=== PATIENT | male | born 1965 | race Two or more races ===

== ENCOUNTER 2020-05-27 08:46 | Inpatient (IN) | payer SELFPAY ==
[~2020-05-27] VITALS: Ht 170.2 cm; Wt 112.4 kg
[2020-05-27 09:23] LABS: Urine Bacteria NONE SEEN /hpf (None Seen); Urine Blood 3+ /uL (Negative); Urine Mucus FEW (None Seen); Urine Specific Gravity 1.031 (1.001-1.035); Urine WBC 189 /hpf (0 - 3)
[2020-05-27 10:44] LABS: Basophils # (auto) 0 10 ^3/uL (0-0.2); Basophils % (auto) 0.5 % (0.0-2.0); Eosinophils # (auto) 0.1 10 ^3/uL (0-0.8); Eosinophils % (auto) 1.7 % (0.0-7.0); Hematocrit 46.5 % (41.0-53.0); Hemoglobin 16.2 g/dL (13.5-17.5); Lymphocytes # (auto) 1.6 10 ^3/uL (0.4-5.4); Lymphocytes % (auto) 19.7 % (10.0-50.0); Mean Corpuscular Hemoglobin 30.6 pg (28.0-32.0); Mean Corpuscular Hgb Conc. 34.9 g/dL (32.0-36.0); Mean Corpuscular Volume 87.7 fL (80.0-100.0); Monocytes # (auto) 0.7 10 ^3/uL (0-1.3); Monocytes % (auto) 9.3 % (0.0-12.0); Neutrophils # (auto) 5.4 10 ^3/uL (1.6-8.6); Neutrophils % (auto) 68.8 % (37.0-80.0); Nucleated Red Blood Cells % 0.2 %; Platelet Count (auto) 187 10^3/uL (140-450); Red Cell Distribution Width 13.6 % (11.8-14.3); White Blood Cell 7.9 10^3/uL (4.4-10.8)
[2020-05-27 10:52] LABS: Albumin 4.2 g/dL (3.4-5.0); Calcium 8.7 mg/dL (8.5-10.1); Potassium 4.1 mmol/L (3.5-5.1)
[2020-05-27 10:55] LABS: BUN/Creatinine Ratio 19.4; Bilirubin, Total 1.5 mg/dL (0.2-1.0); Total Protein 7.7 g/dL (6.4-8.2)
[2020-05-27] MEDS ORDERED: SODIUM CHLORIDE 0.9% 1,000 ML IVB ONE (12:22)
[2020-05-27] MEDS ORDERED: KETOROLAC TROMETH 30 MG/ML 1ML VIAL IV ONE (13:00)
[2020-05-27 13:24] LABS: INR 0.97 (0.9-1.15); Partial Thromboplastin Time 25.6 sec (23.0-31.2)
[2020-05-27] MEDS ORDERED: cefTRIAXone 1GM/50ML D5W 50 ML IV ONE (17:00)
[2020-05-27] MEDS: SOD CHL 0.45% 1,000 ML IV SCH (17:28)
[2020-05-27] MEDS ORDERED: LORazepam 0.5 MG TAB PO PRN (17:30)
[2020-05-27] MEDS ORDERED: ACETAMINOPHEN 325 MG TAB PO PRN (17:30)
[2020-05-27] MEDS ORDERED: ONDANSETRON HCL 4 MG/2 ML VIAL IV PRN (17:30)
[2020-05-27] MEDS ORDERED: NITROGLYCERIN 0.4 MG SL TAB SL PRN (17:30)
[2020-05-27] MEDS ORDERED: MORPHINE SULF INJ 2 MG/ML SYRINGE 1ML IV PRN (17:30)
[2020-05-27] MEDS ORDERED: ALUM & MAG HYDROX-SIMETH LIQ(MAALOX) 30 ML PO PRN (17:30)
[2020-05-27] MEDS ORDERED: LISINOPRIL 20 MG TAB PO ONE (18:00)
[2020-05-27] MEDS ORDERED: cloNIDine HCL 0.1 MG TAB PO PRN (18:00)
[2020-05-27 18:46] LABS: Cholesterol 200 mg/dL (< 200); HDL Cholesterol 36 mg/dL (40-59); LDL Cholesterol 150 mg/dL (< 100); Triglycerides 82 mg/dL (< 150)
[2020-05-27 20:30] VITALS: BP 141/74
--- NOTE | 2020-05-27 20:30 | NUR ---
Patient Brought to Tele from ER w/ all Belongings Patient is AO x 4 w/ HOB at 30 degrees. Bed locked in lowest position and call light is within reach. Patient is ambulatory and has no s/s of distress or SOB. Patient complains of some mild pain on right side after using restroom, but has not requested pain medication. Will continue to monitor.
[2020-05-27] MEDS: FAMOTIDINE (10MG/ML) 2ML VL IV SCH (22:11)
[2020-05-27] MEDS: metroNIDAZOLE 500MG/100ML 100 ML IV SCH (22:11)
[2020-05-27 23:13] VITALS: BP 141/74
[2020-05-28] MEDS: MORPHINE SULF INJ 2 MG/ML SYRINGE 1ML IV PRN ×2 (01:54→19:07)
[2020-05-28 05:28] VITALS: BP 119/74
[2020-05-28] MEDS: metroNIDAZOLE 500MG/100ML 100 ML IV SCH ×3 (05:33→22:14)
--- NOTE | 2020-05-28 07:30 | NUR ---
Opening Shift Note Assumed patient care from NOC RN, Vania. Patient currently sitting up in bed, respirations even and unlabored. No signs of distress at this time. Safety precautions in place, will continue to monitor.
[2020-05-28] MEDS: cefTRIAXone 1GM/50ML D5W 50 ML IV SCH (08:29)
[2020-05-28] MEDS: HYDROcodone-ACET 5/325MG TAB PO PRN (08:29)
[2020-05-28 09:00] VITALS: BP 113/72
[2020-05-28] MEDS ORDERED: ALLOPURINOL 100 MG TAB PO SCH (10:00)
[2020-05-28] MEDS ORDERED: ENOXAPARIN SOD 40 MG/0.4 ML SYRINGE SC SCH (10:00)
--- NOTE | 2020-05-28 10:18 | NUR ---
at Bedside Dr. Silver at bedside. Patient verbalized understanding and is agreeable at this time. New orders received.
[2020-05-28] MEDS: FAMOTIDINE (10MG/ML) 2ML VL IV SCH ×2 (10:19→22:14)
[2020-05-28] MEDS: SOD CHL 0.45% 1,000 ML IV SCH (10:19)
[2020-05-28] MEDS: LISINOPRIL 20 MG TAB PO SCH (10:20)
[2020-05-28 10:57] LABS: Alcohol, Urine < 3.0 mg/dL (0-10); Amphetamine Screen, Urine NEGATIVE (NEGATIVE); Barbiturate Scree,Urine NEGATIVE (NEGATIVE); Benzodiazephine Screen, Urine NEGATIVE (NEGATIVE); Cannabinoid Screen, Urine NEGATIVE (NEGATIVE); Cocaine Screen, Urine NEGATIVE (NEGATIVE); Opiate Scree,Urine NEGATIVE (NEGATIVE); Phencyclidine Screen, Urine NEGATIVE (NEGATIVE)
[2020-05-28 10:58] LABS: Urine Amorphous Crystal MOD /hpf (None Seen); Urine Bacteria NONE SEEN /hpf (None Seen); Urine Mucus FEW (None Seen); Urine WBC 616 /hpf (0 - 3); Urine WBC Clumps PRESENT /hpf (None Seen)
--- NOTE | 2020-05-28 11:00 | NUR ---
at Bedside Dr. Romero at bedside discussing plan of care with patient. Patient verbalized understanding and is agreeable at this time. Will continue to monitor.
[2020-05-28 11:06] LABS: Urine Specific Gravity 1.022 (1.001-1.035)
[2020-05-28 11:09] LABS: Urine Budding Yeast Few /hpf (None Seen)
--- NOTE | 2020-05-28 11:40 | NUR ---
COVID Swab Obtained covid swab and walked down to lab. cytogenetic technician aware. Addendum: 05/28/20 at 1148 by KRISTEL MASCORRO RN RN Patient tolerated well, no signs of distress. Respirations even and unlabored. Safety precautions in place, will continue to monitor.
[2020-05-28 13:00] VITALS: BP 113/75
[2020-05-28] MEDS ORDERED: DEXTROSE (50%) 50ML SYRG IV PRN (15:15)
--- NOTE | 2020-05-28 16:27 | NUR ---
COVID RESULTS: PATIENT COVID POSITIVE, MD HOPKINS MADE AWARE, PATIENT TO BE TRANSFERRED TO COVID UNIT ROOM 247.
--- NOTE | 2020-05-28 16:41 | NUR ---
Patient Transferred Patient transferred to covid unit with Memo Kaiser.
--- NOTE | 2020-05-28 16:45 | NUR ---
PT ARRIVED FROM [facility] VIA WHEELCHAIR, MADE AWARE BEFORE ARRIVAL THAT HE IS POSITIVE FOR COVID, PT ARRIVE VERY UPSET AND STILL IN SHOCK HAVE IN A LOT OF QUESTIONS WHAT WILL HAPPEN NEXT, PT STATED I AM NOT WORRY ABOUT MY SELF, I AM WORRIED MORE ABOUT MY > ALL PATIENT'S QUESTION ANSWERED, SUPPORT GIVEN TO HIM, AND MADE HIM AWARE CLEARLY THAT HE IS VERY STABLE AND NOT TO WORRY, HAND OUT EDUCATION REGARDING COVID GIVEN TO PT , TELE 35 SR 65, ROOM ORIENTATION GIVEN TO PT, CALL LIGHT WITHIN REACH
--- NOTE | 2020-05-28 16:46 | NUR ---
Report Report given to ANKIT Oliveros.
[2020-05-28 16:53] VITALS: BP 121/73
[2020-05-28 17:00] VITALS: BP 149/83
--- NOTE | 2020-05-28 17:00 | NUR ---
Called Received return call from Dr. Romero. New orders received. Per Dr. Romero, messaged Dr. Silver regarding micro results; per , advance diet at this time.
--- NOTE | 2020-05-28 17:12 | NUR ---
MD Called Received call from Dr. Silver. Per , hold procedure at this time, patient to be kept NPO.
--- NOTE | 2020-05-28 17:32 | NUR ---
PAGE DR LENTZ
[2020-05-28] MEDS: InsuLIN REG 1unit/0.01ml Soln (100units/ml) SC SCH (17:33)
[2020-05-28] MEDS: ACCU-CHEK COMFORT CURVE STRIP VI SCH (17:34)
--- NOTE | 2020-05-28 18:00 | NUR ---
KIDNEY US TECH AT BED SIDE
--- NOTE | 2020-05-28 18:45 | NUR ---
SHOWER PT IS TAKING A SHOWER TO GET READY FOR THE SURGERY
[2020-05-28] MEDS: SOD CHL 0.45% WITH 20MEQ KCL 1,000 ML IV SCH (18:54)
--- NOTE | 2020-05-28 19:07 | NUR ---
PT IS RESTING IN BED COMFORTABLY STABLE, NO DISTRESS NOTED,MEDICATED WITH MORPHINE FOR ACHING PAIN AT 7/10, PLAYING A GAME OVER HIS CELL PHONE, CONTINUE MONITORING
--- NOTE | 2020-05-28 19:20 | NUR ---
OPENING SHIFT NOTE Assumed care of patient, who is A&O x4. Currently on RA with no s/s of distress. Denies pain at this time. PIV in right forearm is intact and patent. IVF currently infusing. POC discussed and patient verbalized understanding. Patient to be kept NPO per Dr. Silver, pending surgery. Bed is in low locked position with side rails up x2. Call light is within reach and patient encouraged to call for assistance when needed. Will continue to monitor for changes PRN.
[2020-05-28 22:00] VITALS: BP 152/80
[2020-05-28] MEDS: ALBUTEROL SULF HFA 90MCG INH 200DOSE IN SCH (22:00)
[2020-05-29] MEDS: SOD CHL 0.45% WITH 20MEQ KCL 1,000 ML IV SCH (04:35)
[2020-05-29 05:00] VITALS: BP 154/82
[2020-05-29] MEDS: MORPHINE SULF INJ 2 MG/ML SYRINGE 1ML IV PRN ×4 (05:30→23:57)
[2020-05-29 05:48] LABS: Basophils # (auto) 0 10 ^3/uL (0-0.2); Basophils % (auto) 0.4 % (0.0-2.0); Eosinophils # (auto) 0.1 10 ^3/uL (0-0.8); Eosinophils % (auto) 1.6 % (0.0-7.0); Hematocrit 45.9 % (41.0-53.0); Hemoglobin 15.3 g/dL (13.5-17.5); Lymphocytes # (auto) 1.7 10 ^3/uL (0.4-5.4); Lymphocytes % (auto) 26.6 % (10.0-50.0); Mean Corpuscular Hemoglobin 29.5 pg (28.0-32.0); Mean Corpuscular Hgb Conc. 33.4 g/dL (32.0-36.0); Mean Corpuscular Volume 88.2 fL (80.0-100.0); Monocytes # (auto) 0.6 10 ^3/uL (0-1.3); Monocytes % (auto) 9.6 % (0.0-12.0); Neutrophils % (auto) 61.8 % (37.0-80.0); Nucleated Red Blood Cells % 0.1 %; Platelet Count (auto) 181 10^3/uL (140-450); Red Cell Distribution Width 13.5 % (11.8-14.3); White Blood Cell 6.5 10^3/uL (4.4-10.8)
[2020-05-29 06:09] LABS: Potassium 3.9 mmol/L (3.5-5.1)
[2020-05-29 06:21] LABS: Albumin 3.4 g/dL (3.4-5.0); BUN/Creatinine Ratio 16.5; Bilirubin, Total 1.6 mg/dL (0.2-1.0); Calcium 8.8 mg/dL (8.5-10.1)
[2020-05-29] MEDS: InsuLIN REG 1unit/0.01ml Soln (100units/ml) SC SCH ×2 (06:31)
[2020-05-29] MEDS: metroNIDAZOLE 500MG/100ML 100 ML IV SCH ×3 (06:31→21:36)
[2020-05-29] MEDS: ACCU-CHEK COMFORT CURVE STRIP VI SCH ×2 (06:31)
[2020-05-29] MEDS: ALBUTEROL SULF HFA 90MCG INH 200DOSE IN SCH ×3 (06:41→21:21)
--- NOTE | 2020-05-29 06:41 | NUR ---
Respiratory note: [facility] THERAPY HELD, PT'S INHALERS NOT AVAILABLE AT THIS TIME. HR 66, RR 18, SPO2 96% ON ROOM AIR. BREATH SOUNDS CLEAR/DIM T/O. PT AWAKE AND ALERT, RESTING IN BED AND DENIES SOB, NO S/S OF DISTRESS. WILL FOLLOW UP WITH PHARMACY ON INHALERS. WILL CONT TO MONITOR.
[2020-05-29 08:00] VITALS: BP 151/90
--- NOTE | 2020-05-29 08:30 | NUR ---
Opening Shift Note Assumed care of patient, patient comfortably sleeping, breath sounds even and unlabored, patient on room air. No S/S of distress/SOB or pain. Instructed on POC and to call for assist PRN. Bed at lowest locked position and call light within reach. Will continue to monitor for changes Q1hr and PRN.
--- NOTE | 2020-05-29 09:51 | NUR ---
Notified patient that he will not have his surgery today, per Dr. Romero. Patient is very upset and is demanding to speak to Dr. Silver, patient states " im leaving today, no later than 1pm, there is no point in me staying here". Paged Dr. Romero. Awaiting call back. Addendum: 05/29/20 at 0953 by Pretty Lynn RN Received call from Dr. Romero. will be in to see patient later.
--- NOTE | 2020-05-29 10:16 | NUR ---
Updated Patients (Adán Ruiz) on POC, after password was provided. Addendum: 05/29/20 at 1034 by Pretty Lynn RN talking to patient on the phone.
[2020-05-29 10:22] VITALS: BP 151/90
[2020-05-29] MEDS ORDERED: SODIUM CHLORIDE 0.9% 1,000 ML IV ONE (11:00)
[2020-05-29] MEDS: ZINC SULFATE 220mg CAP or TAB PO SCH (11:28)
[2020-05-29] MEDS: cefTRIAXone 1GM/50ML D5W 50 ML IV SCH (11:28)
[2020-05-29] MEDS: LISINOPRIL 20 MG TAB PO SCH (11:29)
[2020-05-29] MEDS: CHOLECALCIFEROL (VITD3) 2,000 UNIT CAP PO SCH (11:29)
[2020-05-29 12:00] VITALS: BP 163/88
--- NOTE | 2020-05-29 13:51 | NUR ---
Dr. Romero at bedside.
[2020-05-29 17:00] VITALS: BP 138/83
--- NOTE | 2020-05-29 17:02 | NUR ---
Urine specimen collected and sent to lab via [employer] [facility] [employer] [place] [employer] [facility].
[2020-05-29 18:19] LABS: Urine Bacteria MOD /hpf (None Seen); Urine Blood 3+ /uL (Negative); Urine Mucus FEW (None Seen); Urine WBC 43 /hpf (0 - 3); Urine WBC Clumps PRESENT /hpf (None Seen)
--- NOTE | 2020-05-29 19:05 | NUR ---
patient c/o low abdominal pain that radiates to the left /right flank , 07/08. Medicated per MD orders.
--- NOTE | 2020-05-29 19:06 | NUR ---
closing note Patient is sitting up in bed, on room air, breath sounds even and unlabored. Bed at lowest locked position and call light within reach. Will endorse care to NOC RN.
--- NOTE | 2020-05-29 20:00 | NUR ---
Opening Shift Note Assumed care of patient, awake and alert. No S/S of distress/SOB. Pain to abd and lower back 10/10 stabbing pain will medicate patient per md order. Instructed on POC and to call for assist PRN, will continue to monitor for changes Q1hr and PRN. Bed in low position and call light within reach.
[2020-05-29] MEDS: DOCUSATE SOD 100 MG CAP PO PRN (20:14)
[2020-05-29] MEDS: HYDROcodone-ACET 5/325MG TAB PO PRN (20:14)
--- NOTE | 2020-05-29 20:14 | NUR ---
pain 10/10 stabbing pain to right abd and back. patient requested norco. patient medicated for pain
[2020-05-29] MEDS: PANTOPRAZOLE 40 MG TAB PO SCH (21:37)
--- NOTE | 2020-05-29 21:38 | NUR ---
pain 3/10 pain
[2020-05-29 21:59] VITALS: BP 153/99
--- NOTE | 2020-05-29 23:57 | NUR ---
pain pain of 10/10 to right abd and back stabbing pain. patient medicated for pain
--- NOTE | 2020-05-30 00:27 | NUR ---
patient sleeping no signs of sob distress or pain
[2020-05-30] MEDS: HYDROcodone-ACET 5/325MG TAB PO PRN ×2 (03:15→12:03)
--- NOTE | 2020-05-30 03:15 | NUR ---
pain 10/10 to right abd stabbing pain. patient requested norco.patient medicated for pain
[2020-05-30 05:00] VITALS: BP 123/95
[2020-05-30] MEDS: metroNIDAZOLE 500MG/100ML 100 ML IV SCH ×3 (05:32→22:43)
[2020-05-30] MEDS: MORPHINE SULF INJ 2 MG/ML SYRINGE 1ML IV PRN ×4 (05:55→22:43)
--- NOTE | 2020-05-30 06:37 | NUR ---
patient rounds patient awake and alert denies sob distress or pain. iv is intact and patent. call light within reach and bed in low position
[2020-05-30] MEDS: ALBUTEROL SULF HFA 90MCG INH 200DOSE IN SCH ×3 (06:41→21:37)
--- NOTE | 2020-05-30 07:10 | NUR ---
report given to dayshift rn patient denies sob distress or pain
[2020-05-30 08:00] VITALS: BP 118/55
--- NOTE | 2020-05-30 08:00 | NUR ---
Opening Shift Note Assumed care of patient, pt comfortably sleeping, breath sounds even and unlabored. No S/S of distress/SOB or pain. Bed at lowest locked position and call light within reach. Will continue to monitor for changes Q1hr and PRN.
--- NOTE | 2020-05-30 09:50 | NUR ---
Patient c/o lower abdominal pain, will medicate per MD orders.
[2020-05-30] MEDS: cefTRIAXone 1GM/50ML D5W 50 ML IV SCH (09:51)
[2020-05-30] MEDS: ZINC SULFATE 220mg CAP or TAB PO SCH (09:51)
[2020-05-30] MEDS: LISINOPRIL 20 MG TAB PO SCH (09:52)
[2020-05-30] MEDS: CHOLECALCIFEROL (VITD3) 2,000 UNIT CAP PO SCH (09:52)
[2020-05-30] MEDS: PANTOPRAZOLE 40 MG TAB PO SCH ×2 (09:52→22:43)
--- NOTE | 2020-05-30 11:15 | NUR ---
IV on right FA is leaking. IV discontinued IV DC'd with clean sterile technique, catheter fully intact. Pressure dressing applied to site. Patient tolerated well.
--- NOTE | 2020-05-30 11:51 | NUR ---
Nutrition Assessment Notes please see attached link for complete assessment Est energy needs ABW 89 [id number] kcal (20-23kcal/kg ABW) , Est protein needs 89-97g (1-1.1g/kg ABW) . Will reassess prn. Addendum: 05/30/20 at [address] Amended: Links added.
[2020-05-30 12:00] VITALS: BP 140/98
--- NOTE | 2020-05-30 13:00 | NUR ---
IV insertion IV access obtained, via clean sterile technique by inserting 20 gauge catheter at left hand after 1 attempt. IV secured properly. No trauma to site. Patient tolerated well.
--- NOTE | 2020-05-30 13:40 | NUR ---
Updated patient's on POC, after password was provided. is requesting to talk to MD. Pagetodd Weiss.
[2020-05-30] MEDS: DOCUSATE SOD 100 MG CAP PO PRN (15:50)
--- NOTE | 2020-05-30 16:00 | NUR ---
spoke to patient's NOK, sohail Ruiz ()after password was provided.
--- NOTE | 2020-05-30 16:07 | NUR ---
Assessment Patient is a 54-year-old male who is alert and oriented. Prior to admission patient lived home with family and functioned independently. Prior to admission patient could care for his own ADLs. Patient does not have any medical equipment now. Patient stated he has applied for [employer]. Patient was informed upon discharge bedside nurse will provide him with instructions to follow with [facility] discharge clinic. Per patient he will return to his prior living arraignments post discharge and family will transport him home. Informed patient he has a right to participate in all discharge planning. Patient verbalized understanding. Addendum: 05/30/20 at 1610 by NATE MORTENSEN Amended: Links added.
[2020-05-30 17:00] VITALS: BP 117/81
--- NOTE | 2020-05-30 18:57 | NUR ---
Closing Note Patient is comfortably resting in bed, no s/s of distress/noted/stated. No c/o pain. Bed at lowest locked position and call light within reach. Will endorse care to NOC RN.
[2020-05-30 20:00] VITALS: BP 148/99
[2020-05-30 21:47] VITALS: BP 148/99
--- NOTE | 2020-05-30 22:20 | NUR ---
PAIN Patient reports 8/10 pain to right groin area that radiates to right lower back. Requests Morphine. Patient medicated according to orders. Will monitor for effectiveness.
--- NOTE | 2020-05-31 00:10 | NUR ---
PAIN Patient reports headache. Medicated with Acetaminophen 650mg per orders. Will monitor for effectiveness.
--- NOTE | 2020-05-31 02:33 | NUR ---
OPENING SHIFT NOTE Assumed care of patient who is A&O x4. Currently on RA with no s/s of distress. Reports pain to right groin that radiates to right lower back. Also reports dysuria. PIV in left hand intact and patent. Flushed with 10ml NS. Patient is ambulatory without the use of assistive devices at baseline. POC discussed and patient verbalizes understanding. Bed is in low locked position with side rails up x2. Call light within reach and patient encouraged to call for assistance when needed. Will continue to monitor for changes PRN. Addendum: 05/31/20 at 0616 by CESAR MONTALVO RN RN INCORRECT DATE AND TIME. CORRECT DATE AND TIME IS 05/30/20 @ 1945.
[2020-05-31 05:08] VITALS: BP 93/51
[2020-05-31 06:14] VITALS: BP 98/55
--- NOTE | 2020-05-31 06:16 | NUR ---
BLOOD PRESSURE [employer] obtained and reported a BP of 93/52, HR 56. Reassessed by this RN and is 98/55, HR 60.
[2020-05-31] MEDS: metroNIDAZOLE 500MG/100ML 100 ML IV SCH (06:18)
[2020-05-31] MEDS: ALBUTEROL SULF HFA 90MCG INH 200DOSE IN SCH ×2 (06:44→14:20)
[2020-05-31 08:00] VITALS: BP 138/81
[2020-05-31 09:00] VITALS: BP 138/71
[2020-05-31 13:06] VITALS: BP 150/84
--- NOTE | 2020-05-31 14:03 | NUR ---
Dr. Romero at bedside. Patient to be discharged later today with antibiotics and pain medications . Sara has been notified.
[2020-05-31] MEDS ORDERED: METR500T14 PO (14:14)
[2020-05-31] MEDS ORDERED: PANT40TA2 PO (14:14)
[2020-05-31] MEDS ORDERED: LEVO-28 PO (14:14)
[2020-05-31] MEDS ORDERED: LISI-646 PO (14:14)
[2020-05-31] MEDS ORDERED: ONDA-144 PO (14:14)
[2020-05-31] MEDS ORDERED: ATOR10TA PO (14:23)
[2020-05-31 15:46] VITALS: BP 118/55
== END 2020-05-31 16:31 | disposition home or self-care (01) | DRG 177 ==
LOC: ER 08:46 → TELE 08:47 → TELE-CENTR 20:29 → TELE-EAST 05-28 16:30 → EAST 05-29 10:54
PROVIDERS: ADMIT Hospitalist; ATTEND Internal Medicine
DX: U07.1 COVID-19 (principal); J18.9 Pneumonia, unspecified organism; K80.00 Calculus of gallbladder with acute cholecystitis without obstruction; N30.01 Acute cystitis with hematuria; E11.65 Type 2 diabetes mellitus with hyperglycemia; E66.01 Morbid (severe) obesity due to excess calories; E78.5 Hyperlipidemia, unspecified; G89.29 Other chronic pain; I10 Essential (primary) hypertension; M10.9 Gout, unspecified; Z20.828 Contact with and (suspected) exposure to other viral communicable diseases; M48.061 Spinal stenosis, lumbar region without neurogenic claudication; N43.3 Hydrocele, unspecified; R16.1 Splenomegaly, not elsewhere classified; Z82.49 Family history of ischemic heart disease and other diseases of the circulatory system; Z68.38 Body mass index [BMI] 38.0-38.9, adult
CPT/HCPCS: 36415; 71045; 74176; 76705; 76775; 76870; 80053; 80061; 80307; 81001; 82247; 82248; 82962; 83010; 83036; 83615; 83690; 83735; 84484; 84550; 85025; 85045; 85610; 85652; 85730; 86850; 86900; 86901; 87040; 87086; 93005; 94640; G0378; J0696; J1885; J2405; J3490